=== PATIENT | female | born 1950 | race Caucasian/White ===

== ENCOUNTER 2017-05-23 09:49 | Observation (INO) ==
[2017-05-23] MEDS ORDERED: ASPIRIN PO STA (09:56)
[2017-05-23 10:28] LABS: MANUAL DIFF NEEDED? NO
[2017-05-23 10:37] LABS: BASO% 1.5 % (0.0-0.8); EOS# 0.68 X1000 (0.0-0.7); EOS% 9.5 % (0.0-10.0); HEMATOCRIT 43.2 % (37.0-47.0); HEMOGLOBIN 15.6 g/dL (12.0-16.0); LYMPH# 2.32 X1000 (1.2-3.4); LYMPH% 32.4 % (20.5-51.1); MCH 30.7 PG (27-31); MCHC 36.1 g/dL (33-37); MONO# 0.39 X1000 (0.11-0.59); MONO% 5.5 % (1.7-9.3); MPV 10.2 FL (7.4-10.4); NEUT% 51.1 % (42.2-75.2); PLT 154 X1000 (130-400); RBC 5.08 XMIL (4.2-5.4)
[2017-05-23 10:49] LABS: INR 0.96; PROTIME 10.1 Seconds (9.2-11.7); PTT 23.1 Seconds (22.0-36.0)
--- NOTE | 2017-05-23 10:56 | Diag Imaging Result Doc PS360 ---
EXAM: CHEST-2 VIEWS HISTORY: CP TECHNIQUE: COMPARISON: 01/23/2016 FINDINGS: The lungs are well expanded. The heart is not enlarged. The vessels are not distended. There are no infiltrates. No pleural effusions. IMPRESSION: No acute abnormality. Electronically signed by Moshe Hernandez 05/23/2017 10:53 AM
[2017-05-23 11:05] LABS: AGAP 13; ALKALINE PHOSPHATASE 93 U/L (32-104); BUN 8 mg/dL (8-22); CALCIUM 9.5 mg/dL (8.8-10.2); CHLORIDE 100 mmol/L (98-107); CK PROFILE 44 U/L (24-173); COSMO 276; GOT 17 U/L (10-30); GPT 14 U/L (10-36); MAGNESIUM 1.9 mg/dL (1.5-2.7); POTASSIUM 3.6 mmol/L (3.5-5.1); SODIUM 139 mmol/L (136-145); TCO2 26 mmol/L (25-35); TOTAL BILIRUBIN 0.39 mg/dL (0.20-1.00); TOTAL PROTEIN 6.8 g/dL (6.3-8.3)
--- NOTE | 2017-05-23 11:55 | Diag Imaging Result Doc PS360 ---
EXAM: ANGIOGRAM/PULMONARY ARTERIES HISTORY: elevated d-dimer TECHNIQUE: Dose reduction protocol. CT chest with contrast. Coronal MIP images obtained. COMPARISON: None. FINDINGS: There is normal opacification of the pulmonary arteries and their major branches. No thoracic aortic aneurysm or dissection. No pleural effusions. No cardiomegaly. There are several calcified subcarinal and right hilar lymph nodes and there are scattered granuloma. There is a 6 mm nodule along the left fissure on image 71. Tiny groundglass infiltrates in the upper lungs. No consolidation. No bronchiectasis. Mildly prominent noncalcified lymph nodes in the aorticopulmonary window. IMPRESSION: 1.No pulmonary emboli 2.Tiny groundglass infiltrates 3.There is evidence of a prior granulomatous infection 4.Mild prominence to several lymph nodes in the aorticopulmonary window. Electronically signed by Moshe Hernandez 05/23/2017 11:52 AM
--- NOTE | 2017-05-23 12:05 | PROVIDER DOCUMENTATION ---
This chart was entered by Eloise Luther Scribe, acting as scribe for Damian Grande MD. HPI-Chest Pain - General Chief Complaint: Chest Pain Stated Complaint: TIGHTNESS IN CHEST Time Seen by Provider: 05/23/17 10:05 Source: patient Allergies/Adverse Reactions: Patient Allergies Allergy/AdvReac Type Severity Reaction Status Date / Time venom-honey bee Allergy ANAPHYLAXIS Verified 12/19/15 11:14 [bee venom (honey bee)] alprazolam [From Xanax] AdvReac Unknown Verified 12/19/15 11:07 Home Medications: Home Medication List Medication Instructions Recorded Confirmed Last Taken Type Cyclobenzaprine [Flexeril] 5 mg PO HS 08/31/12 12/19/15 12/18/15 History Mahaffey-3 Fatty Acids/Fish Oil 1 each PO QAM 08/31/12 12/19/15 12/19/15 History [Mahaffey 3 1,000 mg Softgel] Omeprazole [Prilosec] 20 mg PO QAM 08/31/12 12/19/15 12/19/15 History PRAVAstatin [Pravachol] 40 mg PO HS 08/31/12 12/19/15 12/18/15 History Aspirin/Calcium Carbonate/Mag 325 mg PO DAILY 08/11/14 12/19/15 12/19/15 History [Aspirin Buffered 325 mg Tab] Lisinopril/Hydrochlorothiazide 1 each PO QAM 08/11/14 12/19/15 12/19/15 History [Lisinopril-Hctz 20-25 mg Tab] Ciprofloxacin HCl [Cipro] 500 mg PO BID #20 tablet 12/19/15 Unknown Rx Hydroxyzine Pamoate [Vistaril] 12.5 mg PO TID 12/19/15 12/19/15 12/19/15 History Metoprolol Succinate E.r. [Toprol 100 mg PO QAM 12/19/15 12/19/15 12/19/15 History Xl] Metronidazole [Flagyl] 500 mg PO BID #20 tablet 12/19/15 Unknown Rx Phenylephrine HCl/Witch Geetha 51 gm TP TID #1 gel..gram. 12/19/15 Unknown Rx [Preparation H Cooling Gel] Polyethylene Glycol 3350 [Miralax] 255 gm PO DAILY #1 powder 12/19/15 Unknown Rx - History of Present Illness-CP Nature of Presenting Problem: 67 yo F presents to the ER with complaint of CP and SOB, progressively worse x1 week. Pt states yesterday the pain got worse, describes it as substernal and radiating to her L arm and neck. Has had associated nausea but no vomiting. Location: reports: substernal Chest Pain Radiation: reports: arms, neck Onset/Duration: 24 hours ago Associated Symptoms: reports: nausea, shortness of breath Nitro Today/Relief: no nitro taken today Aspirin Treatment Today: no aspirin today Review of Systems - Adult - REVIEW OF SYSTEMS - ADULT Constitutional: denies: chills, fever Eyes: reports: no symptoms reported Ears, Nose, Mouth & Throat: reports: no symptoms reported Cardiovascular: reports: chest pain. denies: palpitations Respiratory: reports: shortness of breath. denies: cough Gastrointestinal: reports: nausea. denies: diarrhea, vomiting Genitourinary: reports: no symptoms reported Musculoskeletal: reports: no symptoms reported Integumentary: reports: no symptoms reported Neurological: reports: no symptoms reported Psychiatric: reports: no symptoms reported Endocrine: reports: no symptoms reported Hematologic/Lymphatic: reports: no symptoms reported Allergic/Immunologic: reports: no symptoms reported All Other Systems: Reviewed and Negative Past History - Adult - PAST MEDICAL HISTORY-ADULT Review of Records: reports: Nursing Assessment Review, Medications Reviewed Cardiovascular: reports: CAD, HTN, hyperlipidemia Gastrointestinal: reports: GERD - PRIOR SURGERIES/PROCEDURES Surgical/Procedure History: reports: cholecystectomy, hysterectomy, other ( right shoulder ) - PRIOR HOSPITALIZATIONS Prior Hospitalizations: reports: none - IMMUNIZATION STATUS Childhood Immunizations: See Nurse Assessment Flu Vaccine: See Nurse Assessment - FAMILY HISTORY Family History: CAD over 55 yo - SOCIAL HISTORY Smoking: cigarettes Provider spent 3-5 mins advising pt. on dangers of tobacco.: Discussed manners to quit use, and f/u contacts for add'l counseling. Physical Exam-General - PHYSICAL EXAM-ADULT Initial Vital Signs Reviewed: Yes - CONSTITUTIONAL General Appearance: alert, no apparent distress - EYES Eyes: PERRL/EOMI, pink conjunctivae - HEAD, EARS, NOSE, MOUTH & THROAT HENMT: normocephalic/atraumatic, normal ENT inspection - NECK Neck: supple, normal inspection - RESPIRATORY Respiratory: lungs clear, normal breath sounds, no respiratory distress, no accessory muscle use - CARDIOVASCULAR Cardiovascular: normal peripheral pulses, regular rate, rhythm, no edema - GASTROINTESTINAL (ABDOMEN) Abdominal Exam: soft, tenderness (mild, epigastric) - MUSCULOSKELETAL Back Exam: no CVA tenderness, no vertebral tenderness Extremity: normal gait, normal inspection - SKIN Integumentary: normal color, warm/dry - NEUROLOGIC Neurologic: grossly normal, no motor/sensory deficits - PSYCHIATRIC Psych/Mental Status: normal mood/affect, normal thought content, normal thought process, oriented x 3 Progress - PLAN OF CARE/RESULTS Progress/Plan/Lab Results: Vital Signs - 8 hr 05/23/17 09:53 05/23/17 11:05 Temperature 98.1 F Pulse Rate 70 67 Respiratory Rate 16 21 Blood Pressure 184/88 180/90 O2 Sat by Pulse Oximetry 100 96 Laboratory Results - last 24 hr 05/23/17 05/23/17 05/23/17 10:17 10:17 10:17 WBC 7.15 RBC 5.08 Hgb 15.6 Hct 43.2 MCV 85.0 MCH 30.7 MCHC 36.1 RDW Std Deviation 13.6 Plt Count 154 MPV 10.2 Immature Gran % (Auto) 0.0 Neut % (Auto) 51.1 Lymph % (Auto) 32.4 Bibb % (Auto) 5.5 Eos % (Auto) 9.5 Baso % (Auto) 1.5 H Immature Gran # (Auto) 0.00 Neut # (Auto) 3.65 Lymph # (Auto) 2.32 Bibb # (Auto) 0.39 Eos # (Auto) 0.68 Baso # (Auto) 0.11 PT INR PTT (Actin FS) D-Dimer 1.10 H Sodium 139 Potassium 3.6 Chloride 100 Carbon Dioxide 26 Anion Gap 13 BUN 8 Creatinine 0.5 Estimated GFR/1.73 m2 > 60 BUN/Creatinine Ratio 16 Glucose 93 Calculated Osmolality 276 Calcium 9.5 Magnesium 1.9 Total Bilirubin 0.39 AST 17 ALT 14 Alkaline Phosphatase 93 Creatine Kinase 44 Troponin T Vfg-F-Iqrwjlwmrud Pept Total Protein 6.8 Albumin 4.0 Globulin 2.8 Albumin/Globulin Ratio 1.4 05/23/17 05/23/17 05/23/17 10: 10: 10:17 WBC RBC Hgb Hct MCV MCH MCHC RDW Std Deviation Plt Count MPV Immature Gran % (Auto) Neut % (Auto) Lymph % (Auto) Bibb % (Auto) Eos % (Auto) Baso % (Auto) Immature Gran # (Auto) Neut # (Auto) Lymph # (Auto) Bibb # (Auto) Eos # (Auto) Baso # (Auto) PT 10.1 INR 0.96 PTT (Actin FS) 23.1 D-Dimer Sodium Potassium Chloride Carbon Dioxide Anion Gap BUN Creatinine Estimated GFR/1.73 m2 BUN/Creatinine Ratio Glucose Calculated Osmolality Calcium Magnesium Total Bilirubin AST ALT Alkaline Phosphatase Creatine Kinase Troponin T < 0.010 Iwk-K-Psjoczrieyn Pept 157 Total Protein Albumin Globulin Albumin/Globulin Ratio Orders Category Date Time Status Cardiac Monitoring DIRECTED Care 05/23/17 09:56 Active Saline Loc NOW Care 05/23/17 09:56 Active CHEST-2 VIEWS [RAD] Stat Exams 05/23/17 09:56 Completed CTA [ANGIOGRAM/PULMONARY ARTERIES] [CT] Stat Exams 05/23/17 11:23 Completed CBC WITH ELECTRONIC DIFF [HEME] Stat Lab 05/23/17 10:17 Completed CK PROFILE [SP CHEM] Stat Lab 05/23/17 10:17 Completed COMPREHENSIVE METABOLIC PANEL [CHEM] Stat Lab 05/23/17 10:17 Completed D-DIMER [CHEM] Stat Lab 05/23/17 10:17 Completed MAGNESIUM [CHEM] Stat Lab 05/23/17 10:17 Completed PRO B-NATRIURETIC PEPTIDE Stat Lab 05/23/17 10:17 Completed PROTIME WITH INR [COAG] Stat Lab 05/23/17 10:17 Completed PTT [COAG] Stat Lab 05/23/17 10:17 Completed TROPONIN T Stat Lab 05/23/17 10:17 Completed Aspirin Med 05/23/17 09:56 Discontinued 325 mg PO STAT STA EKG [EKG] Stat Ther 05/23/17 09:56 Ordered Laboratory Tests 05/23/17 05/23/17 05/23/17 10:17 10:17 10:17 WBC 7.15 RBC 5.08 Hgb 15.6 Hct 43.2 MCV 85.0 MCH 30.7 MCHC 36.1 RDW Std Deviation 13.6 Plt Count 154 MPV 10.2 Immature Gran % (Auto) 0.0 Neut % (Auto) 51.1 Lymph % (Auto) 32.4 Bibb % (Auto) 5.5 Eos % (Auto) 9.5 Baso % (Auto) 1.5 H Immature Gran # (Auto) 0.00 Neut # (Auto) 3.65 Lymph # (Auto) 2.32 Bibb # (Auto) 0.39 Eos # (Auto) 0.68 Baso # (Auto) 0.11 PT INR PTT (Actin FS) D-Dimer 1.10 H Sodium 139 Potassium 3.6 Chloride 100 Carbon Dioxide 26 Anion Gap 13 BUN 8 Creatinine 0.5 Estimated GFR/1.73 m2 > 60 BUN/Creatinine Ratio 16 Glucose 93 Calculated Osmolality 276 Calcium 9.5 Magnesium 1.9 Total Bilirubin 0.39 AST 17 ALT 14 Alkaline Phosphatase 93 Creatine Kinase 44 Troponin T Mnw-L-Mgwbtbenkvi Pept Total Protein 6.8 Albumin 4.0 Globulin 2.8 Albumin/Globulin Ratio 1.4 05/23/17 05/23/17 05/23/17 10:17 10:17 10:17 WBC RBC Hgb Hct MCV MCH MCHC RDW Std Deviation Plt Count MPV Immature Gran % (Auto) Neut % (Auto) Lymph % (Auto) Bibb % (Auto) Eos % (Auto) Baso % (Auto) Immature Gran # (Auto) Neut # (Auto) Lymph # (Auto) Bibb # (Auto) Eos # (Auto) Baso # (Auto) PT 10.1 INR 0.96 PTT (Actin FS) 23.1 D-Dimer Sodium Potassium Chloride Carbon Dioxide Anion Gap BUN Creatinine Estimated GFR/1.73 m2 BUN/Creatinine Ratio Glucose Calculated Osmolality Calcium Magnesium Total Bilirubin AST ALT Alkaline Phosphatase Creatine Kinase Troponin T < 0.010 Gex-F-Wtlkmivjrbe Pept 157 Total Protein Albumin Globulin Albumin/Globulin Ratio Result Diagrams: 05/23/17 10:17 05/23/17 10:17 - EKG 1 Time of EKG reading by physician:: 09:56 EKG Read and Signed by:: Satish Rodriguez EKG Interpretation (*Must complete 3 of following elements*): Abnormal Rate: 69 Rhythm: normal sinus rhythm [place]: normal QRS: other (low voltage) ID Interval: normal ST Wave: non-specific ST changes - CT/MRI 1 CT Study: Angiogram Impression: See EMR Report (no PE, tiny groundglass infiltrates, there is evidence of prior granulomas infection, mild prominence to several lymph nodes in the aorticopulmonary window. per radiologist) - CONSULTS/PCP/HOSPITALIST Notification #1 *Consult/PCP/Hospitalist*: Dr Price Time Discussed: 12:03 Consult Disposition: Admit Departure - Departure Date of Disposition Decision: 05/23/17 Time of Disposition Decision: 12:04 DIAGNOSIS: Unstable angina Chest pain Qualifiers: Chest pain type: unspecified Qualified Code(s): R07.9 - Chest pain, unspecified Disposition: ADMITTED INPATIENT 09 Certified Medical Emergency: Emergent Condition: Fair Referrals and Follow-Ups: Ryley Arvizu [Primary Care Provider] - - Critical Care Note This patient required my direct & personal management of CC.: No This chart was documented by the indicated scribe, (Eloise Luther Scribe) and accurately reflects the services I performed and decisions made by me, Damian Grande MD, as attested by the provider's signature.
--- NOTE | 2017-05-23 13:46 | HISTORY AND PHYSICAL ---
HISTORY OF PRESENT ILLNESS: This is a 67-year-old pleasant female who complained of chest pain. Apparently she has had pain at least for a month and maybe longer. She works manual labor, she pulls pallets and sometimes she would have to stop because of pressure in her chest, radiation to her jaw. This morning it came on she woke up with this pain. It was pressure in the midsternum radiated to mainly her right jaw but no radiation into her arm. She felt like she had a few palpitations and it just did not seem to let up and get more intense so she called and came to the emergency room. They gave her some nitroglycerin. She felt like there was some relief. She feels like the pain is diminished at the present time. She did a couple weeks ago have what she thought was a subjective febrile illness but not very specific. She also felt like she might have a urinary tract infection last week, but recently denies any fever or chills. No pleuritic pain. No cough or sputum production. PAST MEDICAL HISTORY: 1. Hypertension. 2. Status post hysterectomy. 3. Status post cholecystectomy. 4. Right shoulder surgery. 5. Appendectomy. 6. She has been followed by Dr. Godwin. Apparently she has had a heart catheterization, an exercise stress test, not sure when that was, we think was 2011, 2013. SOCIAL HISTORY: She is . She denies alcohol. She does still smoke approximately a half to 3/4 to a pack a day. Denies any illicit drugs. ALLERGIES: No known drug allergies. REVIEW OF SYSTEMS: Constitutional: No weight gain or loss. No fever or chills recently. HEENT: Unremarkable. Respiratory: No increased work of breathing. Does not describe any orthopnea or paroxysmal nocturnal dyspnea. Cardiovascular: Chest pain as above. GI/: No complaints. Endocrinologic/Hematologic: No significant history or complaints. EXAM: Today in the emergency room.Vital signs: Temperature 98.1 degrees, pulse 66, respirations 15, blood pressure 181/85, O2 saturation 97%. Weight 150 pounds. HEENT: Her pupils were equal. CVP less than 6 cm. Lungs: Clear anterolateral. Cardiovascular: Regular rhythm, rate without murmur or S3. PMI nondisplaced. She had mild tenderness in the costal sternal margin. Abdomen: Soft, nontender. Extremities: Without clubbing, cyanosis, or edema. LAB: White count 7150, hematocrit 43, platelet count 154,000. Sodium 139, potassium 3.6, chloride 100, bicarb 26, BUN 8, creatinine 0.5, calcium 9.5, liver functions unremarkable. Albumin 4.0. Pro time 10.1, PTT was 23. Chest x-ray. No acute abnormality. The lungs are well expanded. No infiltrate. Her pulmonary angiogram showed no pulmonary emboli, tiny glass infiltrates. There is no evidence of prior granulomatous infection. Mild prominence of several lymph nodes in the aorticopulmonary window. ASSESSMENT AND PLAN: 1. Chest pain with characteristics that are suggestive of unstable angina. I believe she has had a heart catheterization before and a myocardial perfusion scan was done on 09/14/2017. Her heart catheterization was [place] [address] Godwin, at that time mild coronary artery disease involving chiefly the right coronary artery, no more than 35% plaque in the junction of the proximal to the middle 3rd of the vessel and then 30% in the more distal portion of the vessel. She had normal left ventricular end diastolic pressure, normal left ventricular systolic function. Ejection fraction was greater than 60%. No mitral regurgitation. No aortic stenosis. Her myocardial perfusion scan done on 09/14/2014 was normal poststress myocardial perfusion scan. Normal left ventricular systolic function. There was scintigraphic evidence of pharmacologic induced myocardial ischemia utilizing walking Lexiscan protocol and felt it was low risk for symptomatic coronary ischemia. We will check serial cardiac enzymes and EKG, ask Dr. Godwin if is she needs further studies. 2. Hypertension. Watch her blood pressure. REVIEW OF MEDICATIONS: That she has taken at home she is on aspirin, calcium carbonate, magnesium which is the 325 aspirin daily, she was taking Cipro for urinary tract infection I think we can we can stop that. She was on Flexeril 5 mg p.o. at bedtime, I think that was for back spasms, back pain, takes Vistaril 12.5 mg p.o. t.i.d., lisinopril/hydrochlorothiazide 20/25 one a day, metoprolol ER 100 mg daily, she is taking Flagyl 500 mg p.o. b.i.d. I think we can stop that as well, omega-3 fatty acids 1000 mg soft gel 1 a day, Prilosec 20 mg daily, Pravachol 40 mg at bedtime, witch ryan preparation cooling gel which I think she is taking topically t.i.d. I assume that is for her back and then MiraLAX glycol 255 g p.o. daily powder, double check that I suspect that going to be 17 g daily. cc: Ab Schreiber MD
[2017-05-23] MEDS ORDERED: LOVENOX SUBQ SCH (13:53)
[2017-05-23] MEDS ORDERED: DUONEB (A & A) INH PRN (13:53)
[2017-05-23] MEDS ORDERED: TYLENOL PO PRN (13:53)
[2017-05-23] MEDS: NICODERM PATCH TD SCH (15:54)
[2017-05-23] MEDS: ASPIRIN PO SCH (15:54)
[2017-05-23] MEDS: DUONEB (A & A) INH SCH ×3 (16:07→23:44)
[2017-05-23] MEDS ORDERED: CARAFATE LIQUID PO ONE (17:10)
[2017-05-23] MEDS: PRILOSEC PO SCH (21:53)
[2017-05-24] MEDS: DUONEB (A & A) INH SCH ×3 (03:45→11:15)
[2017-05-24 05:37] LABS: HEMATOCRIT 42.9 % (37.0-47.0); HEMOGLOBIN 14.9 g/dL (12.0-16.0); MCH 30.5 PG (27-31); MCHC 34.7 g/dL (33-37); MCV 87.9 FL (81-99); MPV 10.2 FL (7.4-10.4); RBC 4.88 XMIL (4.2-5.4)
[2017-05-24 06:00] LABS: AGAP 16; BUN 8 mg/dL (8-22); CALCIUM 9.1 mg/dL (8.8-10.2); CHLORIDE 99 mmol/L (98-107); COSMO 280; HDL 21 mg/dL (45-65); LDL 86 mg/dL; POTASSIUM 3.4 mmol/L (3.5-5.1); SODIUM 141 mmol/L (136-145); TCO2 26 mmol/L (25-35); TRIGLYCERIDES 336 mg/dL (35-135); VLDL 67 mg/dL
[2017-05-24] MEDS: PRILOSEC PO SCH (06:24)
--- NOTE | 2017-05-24 06:55 | EKG Report ---
Test Performed on : 05/24/2017 05:55:52 AM Test Reason : chest pain Blood Pressure : / mmHG Vent. Rate : 068 BPM Atrial Rate : 068 BPM P-R Int : 150 ms QRS Dur : 086 ms QT Int : 406 ms P-R-T Axes : 032 014 003 degrees QTc Int : 431 ms Normal sinus rhythm. Low voltage QRS Cannot rule out Anterior infarct , age undetermined Abnormal ECG When compared with ECG of 23-MAY-2017 09:56, (Unconfirmed) No significant change was found Confirmed by Froylan Johnson MD ([id number]) on 05/25/2017 12:26:49 PM
[2017-05-24 08:35] VITALS: BP 130/65
[2017-05-24] MEDS: ASPIRIN PO SCH (09:18)
--- NOTE | 2017-05-24 09:48 | EKG Report ---
Test Performed on : 05/23/2017 09:56:31 AM Test Reason : ED. CANC IN ERROR Blood Pressure : / mmHG Vent. Rate : 069 BPM Atrial Rate : 069 BPM P-R Int : 140 ms QRS Dur : 088 ms QT Int : 400 ms P-R-T Axes : 021 005 002 degrees QTc Int : 428 ms Normal sinus rhythm. Low voltage QRS Nonspecific T wave abnormality Abnormal ECG When compared with ECG of 12-AUG-2014 03:26, No significant change was found Unconfirmed Result
[2017-05-24] MEDS: NICODERM PATCH TD SCH (10:00)
--- NOTE | 2017-05-24 10:26 | CONSULTATION ---
DATE OF CONSULTATION: 05/23/2017 REQUESTING PHYSICIAN: Hospitalist Service REASON FOR CONSULTATION: Chest pain. HISTORY OF PRESENT ILLNESS: Ms. Christian is a very pleasant 67-year-old female who is my patient. She presented to the emergency room at about 10:00 today with a history that around 8:00 in the morning she started feeling intense tightness in the chest associated with some difficulty breathing. This worried her quite a bit. She felt like an intense pulling and came into the ER for evaluation. In the ER, they did an EKG that was negative for acute ST shifts, although there was a nonspecific T wave changed noted in the precordial leads. The patient states that she feels better after they gave her some nitroglycerin in the ER. She is not having any more discomfort. PAST MEDICAL HISTORY: Positive for coronary artery disease of mild to moderate severity. Back in 08/2012, we performed a heart catheterization on her that showed 20% circumflex lesion, 35% right coronary artery. We did a stress test on her in 09/2014 that came back normal. We had seen her last time in 08/2016, at that time she was doing just fine. She does have history of hypertension and hyperlipidemia which is being treated. She reported having some issues with arthritis of cervical spine. She has taken prednisone intermittently. PAST SURGICAL HISTORY: Positive for cholecystectomy, hysterectomy, shoulder surgery. SOCIAL HISTORY: She is and lives with who has diabetes. She has 2 grownup children. 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 About 2 weeks ago, she felt some tightness in her left anterior chest when she was doing her usual job. She hurt for about 4 days, went to the doctor, and she was given some assurance that it was not any infection or heart issue. FAMILY HISTORY: Positive for heart disease in both parents. They both around the age of 62. Mother had aortic aneurysm. Father had sudden cardiac , massive MS, post bypass. HOME MEDICATIONS: She is taking metoprolol succinate 100 daily, lisinopril 20/25 daily, ciprofloxacin 500 twice a day, aspirin 325 daily, omeprazole 20 mg in the morning, pravastatin 40 at bedtime. ALLERGIES: She is allergic to venom of honeybee and Xanax. REVIEW OF SYSTEMS: Generally, she has no major complaints other than chronic cervical spine issues. She has some acid reflux symptoms. Her blood pressure has been generally well controlled. No chest pains on a regular basis. No pulmonary issues. No active neurological issues at this time. No psychiatric issues. No metabolic issues. No diabetes or thyroid problems. No skin disorder. No hearing or visual problems. No stroke or seizures. No psychiatric events. PHYSICAL EXAMINATION: Blood pressure is 133/65, temperature 98.3, pulse 60, respirations 18. She is awake, alert and oriented, in no distress. HEENT is unremarkable. Chest clear to auscultation and percussion. Heart sounds are regular and rhythmic. No gallop or murmur. Abdomen is nontender, soft. No masses. No hepatomegaly. Extremities show good pulses, no peripheral edema. Neurologic: She moves all 4 extremities, follows commands. Skin shows no rash. She does have some swelling and edema of the right forearm. It became infiltrated during the infusion of dye for a pulmonary angiogram. IMPRESSION: 1. The patient is presenting with chest pain. So far her cardiac enzymes are negative. EKG is nonspecific. 2. History of mild coronary artery disease of right coronary artery and circumflex. 3. History of hypertension. 4. History of hyperlipidemia. 5. History of cervical spine arthritis. 6. Gastric reflux. RECOMMENDATIONS: At this point in time, I would suggest to obtain a followup echocardiogram as well as a followup myocardial perfusion stress test. The patient continues to smoke cigarettes about a pack a day, and that is putting her at high risk of developing coronary and cardiovascular disease in general. I had a lengthy discussion about the importance of abstaining from smoking cigarettes. I will cover her for acid reflux also with Carafate and omeprazole. On review of her CAT scan, she has some suggestion that acid reflux may be ongoing. She also has extensive coronary calcifications noted on the CT angiogram of the chest that was done today for evaluation of possible pulmonary embolus which turned out to be negative. Further advice will be forthcoming. Thank you for asking us to participate in her evaluation. Best regards. cc: Donnie Godwin MD
[2017-05-24] MEDS ORDERED: LEXISCAN ONE (11:16)
--- NOTE | 2017-05-24 13:29 | Diag Imaging Result Document ---
PROCEDURE NAME: MYOCARDIAL PERF SCAN, STR/REST - 05/24/2017 PROCEDURE: Walking Lexiscan Cardiolite stress test was performed by standard protocol. There was no chest pain. Stress electrocardiogram was negative for ischemia. Following Lexiscan infusion, Cardiolite was injected. 11.0 millicuries of Cardiolite was injected for the rest phase. 31 millicuries of Cardiolite was injected for the stress phase. Gated SPECT images were obtained in standard views. Images revealed significant chest wall attenuation. Normal left ventricular cavity size. Normal myocardial perfusion. Left ventricular ejection fraction by gated SPECT was 90%. CONCLUSIONS: 1. No chest pain. 2. Negative Lexiscan stress electrocardiogram. 3. Normal myocardial perfusion. 4. Left ventricular ejection fraction. cc: MD Donnie Ny MD
--- NOTE | 2017-05-24 13:41 | DISCHARGE SUMMARY ---
ADMISSION DATE: 05/23/2017 DISCHARGE DATE: 05/24/2017 HISTORY OF PRESENT ILLNESS: She presented with chest pain and had a complaint of chest pain for least a month or longer. Did come on sometimes when she was moving pallets. She has had trouble with her shoulders and so suspected an element of musculoskeletal pain, but she woke up this morning with pretty good pain, felt like pressure in her chest and radiated to her jaw. PAST MEDICAL HISTORY: 1. Hypertension. 2. Status post hysterectomy. 3. Status post cholecystectomy. 4. Right shoulder surgery. 5. Appendectomy. 6. She is followed by Dr. Godwin. He has done a heart catheterization back in 2011. HOSPITAL COURSE: She underwent a GXT and it was completely unremarkable. I discussed the results with Dr. Dudley. So plan to let her go home this afternoon. Cardiac enzymes negative. EKG negative. It does not appear to be coronary insufficiency causing the pain. Suspected to be musculoskeletal. We will cover for acid reflux. Give her some Carafate and omeprazole. She also had extensive coronary calcifications noted on CT arteriogram that was done. Pulmonary embolus which turned out to be negative. Discussed again and reinforced importance of abstaining from smoking. DISCHARGE MEDICATIONS: Will be omeprazole 40 mg daily. Will give her some Carafate 1 g 4 times a day for 4 weeks. We will continue her aspirin daily and her metoprolol, she is on 100 mg p.o. q.a.m., omega-3 1000 mg soft gel daily, Pravachol 40 mg daily and her MiraLAX daily. cc: Ab Schreiber MD
--- NOTE | 2017-05-24 13:49 | ECHO REPORT ---
ORDER DATE: 05/24/2017 ECHOCARDIOGRAPHIC MEASUREMENTS: 1. Interventricular septum 1.2. Left ventricular posterior wall 1.0. Diastolic diameter 3.6. Left atrium 3.2. Aorta 2.9. Technically suboptimal study . 2. Aortic valve leaflets were trileaflet. Pulmonic valve not well visualized. Mitral valve was normal. Tricuspid valve was normal. Normal left ventricular cavity size. Estimated ejection fraction of 60-65%. 3. There is no aortic stenosis or regurgitation. There is trace to mild mitral regurgitation. Trace to mild tricuspid regurgitation. Peak velocity across the tricuspid valve was less than 2 m/sec. 4. There is no pericardial effusion or obvious intracardiac mass or thrombus seen. Anterior echo- free space suggestive of pericardial fat pad noted. cc: MD Donnie Ny MD
--- NOTE | 2017-05-24 16:30 | PROGRESS NOTE ---
DATE: 05/24/2017 SUBJECTIVE: She went down for nuclear GXT. She apparently had a good night. No further chest pain. OBJECTIVE: Vital signs: Temperature 98.0 degrees, pulse 76, respirations 16, blood pressure 130/65. CVP less than 6 cm. Lungs: Clear in all lung haq. Cardiovascular: Regular rhythm and rate without murmur or S3. Abdomen: Soft. Skin: Is warm and dry. LABS: Troponin was less than 0.01. Lipid profile, total glucose was 174, LDL was 86, HDL was 21. ASSESSMENT AND PLAN: Atypical chest pain. EKGs unremarkable. Troponin, CPK unremarkable. Check nuclear cardiac scan. cc: Ab Schreiber MD
== END 2017-05-24 13:49 | disposition home or self-care (01) ==
LOC: ED 09:49 → 4N 09:49
PROVIDERS: ATTEND Emergency Medicine